=== PATIENT | female | born 1985 | race Caucasian/White ===

== ENCOUNTER → 2017-03-23 | Outpatient (CLI) | payer OTHER ==
[~2017-03-23] MED LIST: ARIP10 PO; ARIP15 PO; ARIP20 PO; ARIP30 PO; BENZ2 PO; LEVSOD125; LEVSOD50 PO; LITH300C PO; PENVK500 PO; Synthroid50 MCG PO
== END | disposition home or self-care (01) ==
LOC: PLD 13:16 → LAB SHORT 13:16
DX: D06.0 Carcinoma in situ of endocervix (principal)
CPT/HCPCS: 88307; 88342

== ENCOUNTER 2017-04-03 20:54 | Emergency (ER) | payer OTHER ==
[~2017-04-03] VITALS: Ht 165.1 cm; Wt 118.8 kg
[~2017-04-03 20:54] MED LIST changes: -PENVK500 PO
[2017-04-03] MEDS ORDERED: PENVK500 PO (21:53)
== END 2017-04-03 21:58 | disposition home or self-care (01) ==
LOC: ER 20:54
DX: K02.9 Dental caries, unspecified (principal); F31.9 Bipolar disorder, unspecified; Z79.899 Other long term (current) drug therapy
CPT/HCPCS: 64400; 99283

== ENCOUNTER 2018-02-25 10:12 | Emergency (ER) | payer OTHER ==
[~2018-02-25] VITALS: Ht 167.6 cm; Wt 96.6 kg
[~2018-02-25 10:12] MED LIST changes: +PENVK500 PO
[2018-02-25] MEDS ORDERED: LORA1 PO (10:23)
[2018-02-25] MEDS ORDERED: OLAN5 PO ×2 (10:23→11:54)
[2018-02-25 11:00] LABS: Source, Urine Clean Catch
[2018-02-25 11:07] LABS: Bilirubin, Urine Neg (Neg); Blood, Urine 1+ (Neg); Glucose Qualitative, Urine Neg (Neg); Ketones, Urine Neg (Neg); Leukocyte Esterase, Urine 3+ (Neg); Nitrite, Urine Neg (Neg); Protein, Urine Neg (Neg); Urobilinogen, Urine NORM (Normal)
[2018-02-25 11:28] LABS: Appearance, Urine Hazy (Clear); Color, Urine Pale Yellow (P-Yellow)
[2018-02-25 11:29] LABS: BASOPHILS ABSOLUTE AUTO 0.05 K/mm3 (0.00-0.23); BASOPHILS PERCENT AUTO 1 % (0-2); EOSINOPHILS ABSOLUTE AUTO 0.77 K/mm3 (0.00-0.68); EOSINOPHILS PERCENT AUTO 9 % (0-6); Hematocrit 39.1 % (33.0-51.0); Hemoglobin 12.8 g/dL (11.5-16.0); IMMATURE GRAN ABSOLUTE AUTO 0.03 K/mm3 (0.00-0.10); IMMATURE GRAN PERCENT AUTO 0 % (0-1); LYMPHOCYTES ABSOLUTE AUTO 2.13 K/mm3 (0.84-5.20); LYMPHOCYTES PERCENT AUTO 24 % (21-46); MONOCYTES ABSOLUTE AUTO 0.47 K/mm3 (0.16-1.47); MONOCYTES PERCENT AUTO 5 % (4-13); Mean Corpuscular HGB 30.8 pg (26.0-34.0); Mean Corpuscular HGB Conc 32.7 g/dL (31.5-36.5); Mean Corpuscular Volume 94 fL (80-100); Mean Platelet Volume 10.1 fL (9.1-12.4); NEUTROPHILS ABSOLUTE AUTO 5.37 K/mm3 (1.96-9.15); NEUTROPHILS PERCENT AUTO 61 % (41-73); Platelet Count 375 K/mm3 (150-400); RDW Coefficient Variation 13.6 % (11.7-14.2); RDW Standard Deviation 47.2 fL (35.1-46.3); Red Blood Cell Count 4.16 M/mm3 (3.80-5.20); White Blood Cell Count 8.82 K/mm3 (4.00-11.30)
[2018-02-25 11:29] LABS: Bacteria Many /hpf; Red Blood Cells, Urine 0-2 /hpf (0-2); Squamous Epithelial Cells Many /hpf (Few); Transitional Epithelial Cells Few /hpf (0-Rare); White Blood Cells, Urine TNTC /hpf (0-5)
[2018-02-25 11:34] LABS: Alanine Aminotransfer (ALT/SGP 33 U/L (12-78); Albumin, Blood 2.8 g/dL (3.4-5.0); Albumin/Globulin Ratio 0.7 (0.8-1.8); Alk Phos 80 U/L (50-136); Anion Gap 6 mmol/L (6-16); Aspartate Aminotrans (AST/SGOT 20 U/L (12-37); Bilirubin, Total 0.2 mg/dL (0.1-1.0); Blood Urea Nitrogen 10 mg/dL (8-24); Bun/Creatinine Ratio 19.3 (12.0-20.0); CO2, Blood 27 mmol/L (21-32); Calcium, Blood 8.1 mg/dL (8.5-10.1); Chloride, Blood 105 mmol/L (98-108); Creatinine, Blood 0.52 mg/dL (0.40-1.00); Globulin, Blood 4.1 g/dL (2.2-4.0); Glomerular Filtration Rate >60 (60-); Glucose, Blood 104 mg/dL (70-99); Sodium, Blood 138 mmol/L (136-145); Total Protein, Blood 6.9 g/dL (6.4-8.2)
[2018-02-25] MEDS ORDERED: Ativan1 MG PO (11:54)
[2018-02-25] MEDS ORDERED: Zofran4 MG PO (11:54)
[2018-02-25] MEDS ORDERED: Pepcid40 MG PO (11:54)
== END 2018-02-25 13:02 | disposition home or self-care (01) ==
LOC: ER 10:12
PROVIDERS: Physician Assistant
DX: R10.11 Right upper quadrant pain (principal); Z79.899 Other long term (current) drug therapy; F31.9 Bipolar disorder, unspecified; F41.9 Anxiety disorder, unspecified; F17.210 Nicotine dependence, cigarettes, uncomplicated
CPT/HCPCS: 36415; 80053; 81001; 81025; 83690; 85025; 96361; 96374; 96375; 99283-25; J2405; J7120

== ENCOUNTER → 2018-03-12 | Outpatient (CLI) | payer OTHER ==
[~2018-03-12] MED LIST changes: +Ativan1 MG PO; +LORA1 PO; +OLAN5 PO; +Pepcid40 MG PO; +Zofran4 MG PO
[2018-03-14 07:14] LABS: HIV SCREEN 4TH GENERATION WRFX Non Reactive (Non Reactive)
[2018-03-15 12:09] LABS: CHLAMYDIA BY NAA Negative (Negative); GONOCOCCUS BY NAA Negative (Negative); TRICH VAG BY NAA Positive (Negative)
== END | disposition home or self-care (01) ==
LOC: LAB SHORT 15:53 → LAB EV 15:53
PROVIDERS: Physician Assistant Surgical
DX: Z11.3 Encounter for screening for infections with a predominantly sexual mode of transmission (principal); Z72.51 High risk heterosexual behavior
CPT/HCPCS: 86592; 87070; 87077; 87147; 87186; 87205; 87389; 87491; 87591; 87661

== ENCOUNTER → 2018-03-24 | Outpatient (CLI) | payer OTHER | END | disposition home or self-care (01) | LOC: LAB SHORT 09:57 → LAB EV 09:57 | DX: J02.9 Acute pharyngitis, unspecified (principal) | CPT/HCPCS: 87070 ==

== ENCOUNTER 2018-10-09 18:18 | Emergency (ER) | payer OTHER ==
[~2018-10-09] VITALS: Ht 165.1 cm; Wt 90.7 kg
[2018-10-09 19:20] LABS: Calcium, Ionized (POC) 1.04 mmol/L (1.10-1.46); Chloride (POC) 104 mmol/L (98-108); Glucose (ISTAT POC) 90 mg/dL (70-99); Potassium (POC) 3.5 mmol/L (3.5-5.5); Sodium (POC) 137 mmol/L (135-148); Total CO2 (POC) 19 mmol/L (21-32)
== END 2018-10-09 20:45 | disposition home or self-care (01) ==
LOC: ER 18:18
DX: F41.9 Anxiety disorder, unspecified (principal); F43.9 Reaction to severe stress, unspecified; F15.20 Other stimulant dependence, uncomplicated; E86.0 Dehydration; Z79.899 Other long term (current) drug therapy; F31.9 Bipolar disorder, unspecified; G43.909 Migraine, unspecified, not intractable, without status migrainosus; F17.210 Nicotine dependence, cigarettes, uncomplicated
CPT/HCPCS: 36415; 80047; 85014; 96361; 96374; 96375; 99284-25; J1885; J2405; J7030

== ENCOUNTER → 2018-10-20 | Outpatient (CLI) | payer OTHER ==
[2018-10-20 11:36] LABS: BASOPHILS ABSOLUTE AUTO 0.04 K/mm3 (0.00-0.23); BASOPHILS PERCENT AUTO 1 % (0-2); EOSINOPHILS ABSOLUTE AUTO 0.18 K/mm3 (0.00-0.68); EOSINOPHILS PERCENT AUTO 2 % (0-6); Hematocrit 44.3 % (33.0-51.0); Hemoglobin 15.3 g/dL (11.5-16.0); IMMATURE GRAN ABSOLUTE AUTO 0.01 K/mm3 (0.00-0.10); IMMATURE GRAN PERCENT AUTO 0 % (0-1); LYMPHOCYTES ABSOLUTE AUTO 2.29 K/mm3 (0.84-5.20); LYMPHOCYTES PERCENT AUTO 26 % (21-46); MONOCYTES ABSOLUTE AUTO 0.41 K/mm3 (0.16-1.47); MONOCYTES PERCENT AUTO 5 % (4-13); Mean Corpuscular HGB 32.2 pg (26.0-34.0); Mean Corpuscular HGB Conc 34.5 g/dL (31.5-36.5); Mean Corpuscular Volume 93 fL (80-100); Mean Platelet Volume 9.9 fL (9.1-12.4); NEUTROPHILS ABSOLUTE AUTO 5.78 K/mm3 (1.96-9.15); NEUTROPHILS PERCENT AUTO 66 % (41-73); Platelet Count 344 K/mm3 (150-400); RDW Coefficient Variation 12.5 % (11.7-14.2); RDW Standard Deviation 42.9 fL (35.1-46.3); Red Blood Cell Count 4.75 M/mm3 (3.80-5.20); White Blood Cell Count 8.71 K/mm3 (4.00-11.30)
[2018-10-20 11:59] LABS: Anion Gap 10 mmol/L (6-16); Blood Urea Nitrogen 9 mg/dL (8-24); Bun/Creatinine Ratio 12.7 (12.0-20.0); CO2, Blood 26 mmol/L (21-32); Calcium, Blood 8.6 mg/dL (8.5-10.1); Chloride, Blood 104 mmol/L (98-108); Creatinine, Blood 0.71 mg/dL (0.40-1.00); Glomerular Filtration Rate >60 (60-); Glucose, Blood 93 mg/dL (70-99); Potassium, Blood 4.4 mmol/L (3.5-5.5); Sodium, Blood 140 mmol/L (136-145)
== END | disposition home or self-care (01) ==
LOC: LAB SHORT 11:31 → LAB EV 11:31
PROVIDERS: Physician Assistant
DX: N91.1 Secondary amenorrhea (principal)
CPT/HCPCS: 80048; 84443; 84702; 85025

== ENCOUNTER 2018-11-30 13:10 | Emergency (ER) | payer OTHER ==
[~2018-11-30] VITALS: Ht 165.1 cm; Wt 84.8 kg
[2018-11-30 15:25] LABS: BASOPHILS ABSOLUTE AUTO 0.05 K/mm3 (0.00-0.23); BASOPHILS PERCENT AUTO 0 % (0-2); EOSINOPHILS ABSOLUTE AUTO 0.19 K/mm3 (0.00-0.68); EOSINOPHILS PERCENT AUTO 1 % (0-6); Hematocrit 41.2 % (33.0-51.0); Hemoglobin 13.8 g/dL (11.5-16.0); IMMATURE GRAN ABSOLUTE AUTO 0.04 K/mm3 (0.00-0.10); IMMATURE GRAN PERCENT AUTO 0 % (0-1); LYMPHOCYTES ABSOLUTE AUTO 2.15 K/mm3 (0.84-5.20); LYMPHOCYTES PERCENT AUTO 15 % (21-46); MONOCYTES ABSOLUTE AUTO 0.71 K/mm3 (0.16-1.47); MONOCYTES PERCENT AUTO 5 % (4-13); Mean Corpuscular HGB 31.6 pg (26.0-34.0); Mean Corpuscular HGB Conc 33.5 g/dL (31.5-36.5); Mean Corpuscular Volume 94 fL (80-100); Mean Platelet Volume 9.7 fL (9.1-12.4); NEUTROPHILS ABSOLUTE AUTO 11.36 K/mm3 (1.96-9.15); NEUTROPHILS PERCENT AUTO 78 % (41-73); Platelet Count 302 K/mm3 (150-400); RDW Coefficient Variation 13.1 % (11.7-14.2); RDW Standard Deviation 45.5 fL (35.1-46.3); Red Blood Cell Count 4.37 M/mm3 (3.80-5.20)
[2018-11-30 15:50] LABS: Alanine Aminotransfer (ALT/SGP 18 U/L (12-78); Albumin, Blood 3.6 g/dL (3.4-5.0); Alk Phos 63 U/L (50-136); Anion Gap 7 mmol/L (6-16); Aspartate Aminotrans (AST/SGOT 13 U/L (12-37); Bilirubin, Total 0.6 mg/dL (0.1-1.0); Blood Urea Nitrogen 8 mg/dL (8-24); Bun/Creatinine Ratio 11.5 (12.0-20.0); CO2, Blood 26 mmol/L (21-32); Calcium, Blood 8.6 mg/dL (8.5-10.1); Chloride, Blood 102 mmol/L (98-108); Creatinine, Blood 0.69 mg/dL (0.40-1.00); Globulin, Blood 3.7 g/dL (2.2-4.0); Glomerular Filtration Rate >60 (60-); Glucose, Blood 88 mg/dL (70-99); Potassium, Blood 3.7 mmol/L (3.5-5.5); Sodium, Blood 135 mmol/L (136-145); Total Protein, Blood 7.3 g/dL (6.4-8.2)
[2018-11-30 15:51] LABS: Source, Urine Clean Catch
[2018-11-30 15:54] LABS: Appearance, Urine Hazy (Clear); Bilirubin, Urine Neg (Neg); Blood, Urine 1+ (Neg); Color, Urine Yellow (P-Yellow); Glucose Qualitative, Urine Neg (Neg); Ketones, Urine Neg (Neg); Leukocyte Esterase, Urine 3+ (Neg); Nitrite, Urine Neg (Neg); Protein, Urine Neg (Neg); Urobilinogen, Urine NORM (Normal)
[2018-11-30 16:10] LABS: Bacteria Many /hpf; Squamous Epithelial Cells Many /hpf (Few); White Blood Cells, Urine 25-50 /hpf (0-5)
[2018-11-30 16:11] LABS: Hyaline Casts 0-2 /lpf (0-2)
== END 2018-11-30 16:49 | disposition home or self-care (01) ==
LOC: ER 13:10
PROVIDERS: Physician Assistant
DX: S10.93XA Contusion of unspecified part of neck, initial encounter (principal); S60.811A Abrasion of right wrist, initial encounter; F31.9 Bipolar disorder, unspecified; F17.210 Nicotine dependence, cigarettes, uncomplicated; Z79.899 Other long term (current) drug therapy; V49.40XA Driver injured in collision with unspecified motor vehicles in traffic accident, initial encounter
CPT/HCPCS: 36415; 70498; 71046; 73090; 80053; 81001; 81025; 85025; 87086; 90471; 90714; 99284-25; Q9967

== ENCOUNTER 2019-01-04 11:59 | Emergency (ER) | payer OTHER ==
[~2019-01-04] VITALS: Ht 167.6 cm; Wt 83.9 kg
[2019-01-04] MEDS ORDERED: ARIPIPRAZOLE15 MG PO (12:23)
[2019-01-04] MEDS ORDERED: ARIP10 PO (12:40)
== END 2019-01-04 12:44 | disposition home or self-care (01) ==
LOC: ER 11:59
DX: Z76.0 Encounter for issue of repeat prescription (principal); F31.9 Bipolar disorder, unspecified; F17.210 Nicotine dependence, cigarettes, uncomplicated; Z79.899 Other long term (current) drug therapy
CPT/HCPCS: 99281

== ENCOUNTER 2019-02-08 12:24 | Emergency (ER) | payer OTHER ==
[~2019-02-08 12:24] MED LIST changes: +ARIPIPRAZOLE15 MG PO
== END 2019-02-08 13:36 | disposition left against medical advice (07) ==
LOC: ER 12:24
DX: Z53.21 Procedure and treatment not carried out due to patient leaving prior to being seen by health care provider (principal)
CPT/HCPCS: J1630; J7030

== ENCOUNTER 2019-02-09 19:17 | Observation (INO) | payer OTHER ==
[~2019-02-09] VITALS: Ht 162.6 cm; Wt 94.9 kg
[2019-02-09 19:53] LABS: BASOPHILS ABSOLUTE AUTO 0.04 K/mm3 (0.00-0.23); BASOPHILS PERCENT AUTO 0 % (0-2); EOSINOPHILS ABSOLUTE AUTO 0.05 K/mm3 (0.00-0.68); EOSINOPHILS PERCENT AUTO 1 % (0-6); Hematocrit 42.8 % (33.0-51.0); Hemoglobin 13.7 g/dL (11.5-16.0); IMMATURE GRAN ABSOLUTE AUTO 0.03 K/mm3 (0.00-0.10); IMMATURE GRAN PERCENT AUTO 0 % (0-1); LYMPHOCYTES ABSOLUTE AUTO 2.05 K/mm3 (0.84-5.20); LYMPHOCYTES PERCENT AUTO 22 % (21-46); MONOCYTES ABSOLUTE AUTO 0.48 K/mm3 (0.16-1.47); MONOCYTES PERCENT AUTO 5 % (4-13); Mean Corpuscular HGB 31.9 pg (26.0-34.0); Mean Corpuscular Volume 100 fL (80-100); NEUTROPHILS ABSOLUTE AUTO 6.81 K/mm3 (1.96-9.15); NEUTROPHILS PERCENT AUTO 72 % (41-73); Platelet Count 334 K/mm3 (150-400); RDW Coefficient Variation 13.1 % (11.7-14.2); RDW Standard Deviation 47.9 fL (35.1-46.3); White Blood Cell Count 9.46 K/mm3 (4.00-11.30)
[2019-02-09 20:09] LABS: Source, Urine Catheter
[2019-02-09 20:18] LABS: Bilirubin, Urine Neg (Neg); Blood, Urine Neg (Neg); Glucose Qualitative, Urine Neg (Neg); Ketones, Urine Neg (Neg); Leukocyte Esterase, Urine Neg (Neg); Nitrite, Urine Neg (Neg); Protein, Urine 1+ (Neg); Urobilinogen, Urine NORM (Normal)
[2019-02-09 20:19] LABS: Alanine Aminotransfer (ALT/SGP 102 U/L (12-78); Albumin, Blood 3.2 g/dL (3.4-5.0); Albumin/Globulin Ratio 0.9 (0.8-1.8); Alk Phos 64 U/L (50-136); Anion Gap 5 mmol/L (6-16); Aspartate Aminotrans (AST/SGOT 81 U/L (12-37); Bilirubin, Total 0.6 mg/dL (0.1-1.0); Blood Urea Nitrogen 14 mg/dL (8-24); Bun/Creatinine Ratio 19.4 (12.0-20.0); CO2, Blood 26 mmol/L (21-32); Calcium, Blood 8.4 mg/dL (8.5-10.1); Chloride, Blood 108 mmol/L (98-108); Creatinine, Blood 0.72 mg/dL (0.40-1.00); Ethanol (Alcohol), Blood, Med <3 mg/dL; Globulin, Blood 3.7 g/dL (2.2-4.0); Glomerular Filtration Rate >60 (60-); Glucose, Blood 93 mg/dL (70-99); Potassium, Blood 5.1 mmol/L (3.5-5.5); Salicylate <1.7 mg/dL (2.8-20.0); Sodium, Blood 139 mmol/L (136-145); Total Protein, Blood 6.9 g/dL (6.4-8.2)
[2019-02-09 20:22] LABS: Acetaminophen, Random <2.0 ug/mL (10.0-30.0)
[2019-02-09 20:26] LABS: Appearance, Urine Clear (Clear); Color, Urine Yellow (P-Yellow)
[2019-02-09 20:28] LABS: U Amphetamine Screen DETECTED; U Barbituate Screen Not Detected; U Benzodiazapine Screen Not Detected; U Buprenorphine Screen Not Detected; U Cannabinoids Screen DETECTED; U Cocaine Screen Not Detected; U Methadone Screen Not Detected; U Methamphetamine Screen DETECTED; U Opiates Screen Not Detected; U Oxycodone Screen Not Detected; U Phencyclidine Screen Not Detected; U Propoxyphene Screen Not Detected
--- NOTE | 2019-02-10 07:00 | NUR ---
AM ASSESSMENT: REC'D BEDSIDE ASSESSMENT. PT REMAINS SOMNOLENT AT THIS TIME. WILL SLIGHTLY AWAKEN TO VERBAL STIMULI. CALL LIGHT WITHIN REACH.
--- NOTE | 2019-02-10 07:13 | NUR ---
SHFIT SUMMARY PATIENT SLEPT WELL THROUGH REST OF SHIFT. MULTIPLE LAB PERSONEL, RNs, AND RT WERE UNSUCCESFUL WITH DRAWING LABS, INFORMED DAYSHIFT. VSS. NO C/O PAIN. FLU SHOT GIVEN. IT HAS BEEN A PLEASURE TAKING CARE OF THIS PATIENT.
--- NOTE | 2019-02-10 07:40 | NUR ---
FAMILY VISIT: PT'S MOM AND SISTER HERE TO VISIT. PT AWAKENED SCARED AND STARTED CALLING OUT. ANTONIO HYDE RE-ORIENTED PT AND PT BECAME CALM.
--- NOTE | 2019-02-10 09:27 | NUR ---
PT REMAINS VERY DROWSY AT THIS TIME.
--- NOTE | 2019-02-10 11:30 | NUR ---
PT UPDATE: PT OOB TO SHOWER. PT IS VERY WEAK, TREMULOUS, AND UNSTEADY ON FEET. 1-2 PERSON ASSIST FOR SAFETY. PT FULLY ASSISTED WITH SHOWER, PT IS UNABLE TO DO ADL'S INDEPENDENTLY AT THIS TIME. PT REMAINS VERY SLEEPY AND FALLS ASLEEP EASILY. MOOD IS LABILE. PT QUICKLY GOES FROM BEING TEARFUL, TO ANGRY, AND THEN BACK TO SLEEP. PT REMAINS CONFUSED BUT ABLE TO SAY IT'S January,, AND SHE IS IN THE HOSPITAL IN [place].
[2019-02-10 16:10] LABS: Hematocrit 38.4 % (33.0-51.0); Mean Corpuscular HGB 31.7 pg (26.0-34.0); Mean Corpuscular HGB Conc 31.3 g/dL (31.5-36.5); Mean Corpuscular Volume 101 fL (80-100); Platelet Count 243 K/mm3 (150-400); RDW Coefficient Variation 13.2 % (11.7-14.2); RDW Standard Deviation 49.6 fL (35.1-46.3); Red Blood Cell Count 3.79 M/mm3 (3.80-5.20); White Blood Cell Count 7.58 K/mm3 (4.00-11.30)
[2019-02-10 16:29] LABS: CPK Creatine Kinase 108 U/L (26-193)
[2019-02-10 16:34] LABS: Alanine Aminotransfer (ALT/SGP 301 U/L (12-78); Albumin, Blood 2.6 g/dL (3.4-5.0); Albumin/Globulin Ratio 0.9 (0.8-1.8); Alk Phos 48 U/L (50-136); Anion Gap 6 mmol/L (6-16); Aspartate Aminotrans (AST/SGOT 151 U/L (12-37); Bilirubin, Total 0.4 mg/dL (0.1-1.0); Blood Urea Nitrogen 13 mg/dL (8-24); Bun/Creatinine Ratio 19.1 (12.0-20.0); CO2, Blood 22 mmol/L (21-32); Calcium, Blood 7.5 mg/dL (8.5-10.1); Chloride, Blood 115 mmol/L (98-108); Creatinine, Blood 0.68 mg/dL (0.40-1.00); Glomerular Filtration Rate >60 (60-); Glucose, Blood 71 mg/dL (70-99); Potassium, Blood 3.9 mmol/L (3.5-5.5); Sodium, Blood 143 mmol/L (136-145); Total Protein, Blood 5.6 g/dL (6.4-8.2)
--- NOTE | 2019-02-10 16:47 | NUR ---
REPORTED OFF ON THIS PT TO [facility]'ING MEDICAL FLOOR NURSE.
--- NOTE | 2019-02-10 16:51 | NUR ---
PT TRANSFERRED: PT TRANSFERRED VIA BED PER LUIGI WEBBER TO RM [id number]. CHART AND ALL PERSONAL BELONGINGS SENT WITH PT.
--- NOTE | 2019-02-10 17:52 | NUR ---
SHIFT SUMMARY ADMIT FROM ICU THIS P.M. LABILE. SBA TO BSC/BATHROOM. AWAKE AND OX2 PERSON, PLACE. +METH. NON COMPLIANT WITH LITHIUM DOSING. EATING AND DRINKING WELL. LIMIT VISITORS TO MOTHER AND MOTHER'S PER PATIENT.
--- NOTE | 2019-02-11 03:44 | NUR ---
SHIFT SUMMARY PATIENT'S LS CLEAR T/O AND BT+. SHE HAS SCHEDULED HALDOL QID BUT HAS ONLY GOTTEN 2 DOSES OF IT. IT APPEARS TO BE MAKING HER SLEEP. SHE WAS AWAKE FOR AWHILE AND STATED SHE WAS HUNGRY AND NEEDED TO USE THE RESTROOM FOR BOWEL AND BLADDER. SHE ATE PUDDING X2, JELLO, PEPSI BUT DIDN'T EAT THE SANDWICH TAKEN TO HER. SHE ALSO ASKED FOR AN EXTRA BLANKET AND STATED HER STOMACH WAS UPSET, THEN APPEARED TO BE SLEEPING AND HASN'T HAD ANY C/O ANYTHING SINCE THEN.
--- NOTE | 2019-02-11 12:10 | NUR ---
PT DISCHARGED POV WITH MOTHER AND IN NO ACUTE DISTRESS. MOTHER REPORTS PT HAS CURRENTLY SCHEDULED APPT TO OBTAIN A PCP IN THE NEXT FEW WEEKS. PT AND FAMILY ENCOURAGED TO CALL CLINIC AND RESCHEDULE FOR NEXT AVAILABLE APPT. IV'S DISCONTINUED INTACT. PT AND VERBALIZED UNDERSTANDING OF DISCHARGE INSTRUCTIONS. NO RX PRESCRIBED AT TIME OF DISCHARGE.
== END 2019-02-11 12:10 | disposition home or self-care (01) ==
LOC: ER 19:17 → EOR 19:18 → ICUW 19:18 → ER 19:18 → EOR 19:18 → ICUW 02-10 02:14 → MEDS 02-10 16:51 → ENPENDDIS 02-11 10:30 → MEDS 02-11 12:10
PROVIDERS: Emergency Medicine; ADMIT Internal Medicine
DX: T43.621A Poisoning by amphetamines, accidental (unintentional), initial encounter (principal); G92 Toxic encephalopathy; F15.129 Other stimulant abuse with intoxication, unspecified; F31.9 Bipolar disorder, unspecified; G43.909 Migraine, unspecified, not intractable, without status migrainosus; R94.5 Abnormal results of liver function studies; E86.0 Dehydration; F17.210 Nicotine dependence, cigarettes, uncomplicated; Z79.899 Other long term (current) drug therapy; Z23 Encounter for immunization
CPT/HCPCS: 36415; 70450; 80053; 81025; 82550; 85025; 85027; 90686; 93005; 93010; 96361; 96372; 96374; 96375; 96376; 99285-25; G0008; G0378; G0480; J1630; J1650; J2060; J7030; P9612

== ENCOUNTER 2019-02-23 10:14 | Emergency (ER) | payer OTHER ==
[~2019-02-23] VITALS: Ht 167.6 cm; Wt 95.2 kg
== END 2019-02-23 10:58 | disposition left against medical advice (07) ==
LOC: ER 10:14
DX: Z53.21 Procedure and treatment not carried out due to patient leaving prior to being seen by health care provider (principal)
CPT/HCPCS: 99282

== ENCOUNTER 2019-02-23 12:13 | Emergency (ER) | payer OTHER ==
[~2019-02-23] VITALS: Ht 165.1 cm; Wt 95.2 kg
== END 2019-02-23 12:47 | disposition left against medical advice (07) ==
LOC: ER 12:13
DX: Z53.21 Procedure and treatment not carried out due to patient leaving prior to being seen by health care provider (principal)

== ENCOUNTER 2019-03-02 02:57 | Emergency (ER) | payer OTHER ==
[~2019-03-02] VITALS: Ht 165.1 cm; Wt 95.2 kg
== END 2019-03-02 03:19 | disposition home or self-care (01) ==
LOC: ER 02:57
DX: F15.10 Other stimulant abuse, uncomplicated (principal); T43.625A Adverse effect of amphetamines, initial encounter; F17.210 Nicotine dependence, cigarettes, uncomplicated
CPT/HCPCS: 96372; 99283-25; J1200

== ENCOUNTER 2019-04-30 08:04 | Emergency (ER) | payer OTHER ==
[~2019-04-30] VITALS: Ht 165.1 cm; Wt 93.0 kg
[2019-04-30] MEDS ORDERED: LITH300ER PO (08:29)
[2019-04-30] MEDS ORDERED: Abilify2 MG PO (08:30)
[2019-04-30 09:51] LABS: BASOPHILS ABSOLUTE AUTO 0.06 K/mm3 (0.00-0.23); BASOPHILS PERCENT AUTO 0 % (0-2); EOSINOPHILS ABSOLUTE AUTO 0.21 K/mm3 (0.00-0.68); EOSINOPHILS PERCENT AUTO 1 % (0-6); Hematocrit 36.8 % (33.0-51.0); Hemoglobin 12.1 g/dL (11.5-16.0); IMMATURE GRAN ABSOLUTE AUTO 0.07 K/mm3 (0.00-0.10); IMMATURE GRAN PERCENT AUTO 0 % (0-1); LYMPHOCYTES ABSOLUTE AUTO 1.73 K/mm3 (0.84-5.20); LYMPHOCYTES PERCENT AUTO 10 % (21-46); MONOCYTES ABSOLUTE AUTO 0.74 K/mm3 (0.16-1.47); MONOCYTES PERCENT AUTO 4 % (4-13); Mean Corpuscular HGB 31.4 pg (26.0-34.0); Mean Corpuscular HGB Conc 32.9 g/dL (31.5-36.5); Mean Corpuscular Volume 96 fL (80-100); Mean Platelet Volume 9.7 fL (9.1-12.4); NEUTROPHILS ABSOLUTE AUTO 14.72 K/mm3 (1.96-9.15); NEUTROPHILS PERCENT AUTO 84 % (41-73); Platelet Count 328 K/mm3 (150-400); RDW Coefficient Variation 14.4 % (11.7-14.2); RDW Standard Deviation 50.4 fL (35.1-46.3); Red Blood Cell Count 3.85 M/mm3 (3.80-5.20); White Blood Cell Count 17.53 K/mm3 (4.00-11.30)
[2019-04-30 10:09] LABS: Anion Gap 3 mmol/L (6-16); Blood Urea Nitrogen 5 mg/dL (8-24); Bun/Creatinine Ratio 9.1 (12.0-20.0); CO2, Blood 25 mmol/L (21-32); Calcium, Blood 7.8 mg/dL (8.5-10.1); Chloride, Blood 111 mmol/L (98-108); Creatinine, Blood 0.55 mg/dL (0.40-1.00); Glomerular Filtration Rate >60 (60-); Glucose, Blood 98 mg/dL (70-99); Potassium, Blood 4.1 mmol/L (3.5-5.5); Sodium, Blood 139 mmol/L (136-145)
[2019-04-30] MEDS ORDERED: ONDA4ODT MM (10:50)
[2019-04-30] MEDS ORDERED: BENZ100A PO (10:50)
== END 2019-04-30 11:09 | disposition home or self-care (01) ==
LOC: ER 08:04
PROVIDERS: Physician Assistant
DX: J06.9 Acute upper respiratory infection, unspecified (principal); R11.2 Nausea with vomiting, unspecified; F31.9 Bipolar disorder, unspecified; J45.909 Unspecified asthma, uncomplicated; F17.210 Nicotine dependence, cigarettes, uncomplicated; Z79.899 Other long term (current) drug therapy
CPT/HCPCS: 36415; 71046; 80048; 85025; 96361; 96374; 99284-25; J2405; J7030

== ENCOUNTER → 2019-08-13 | Outpatient (CLI) | payer OTHER ==
[~2019-08-13] MED LIST changes: +Abilify2 MG PO; +BENZ100A PO; +LITH300ER PO; +ONDA4ODT MM
== END | disposition home or self-care (01) ==
LOC: LAB 12:50 → LAB SHORT 12:50
DX: R10.84 Generalized abdominal pain (principal)
CPT/HCPCS: 87086

== ENCOUNTER 2019-12-23 22:14 | Emergency (ER) | payer OTHER ==
[~2019-12-23] VITALS: Ht 165.1 cm; Wt 93.0 kg
[2019-12-23] MEDS ORDERED: BACITO TOP (22:55)
[2019-12-23] MEDS ORDERED: Monodox100 MG PO (22:55)
== END 2019-12-23 23:23 | disposition home or self-care (01) ==
LOC: ER 22:14
DX: L03.115 Cellulitis of right lower limb (principal); F31.9 Bipolar disorder, unspecified; F17.210 Nicotine dependence, cigarettes, uncomplicated; Z79.899 Other long term (current) drug therapy
CPT/HCPCS: 99282

== ENCOUNTER 2020-08-13 14:26 | Emergency (ER) | payer OTHER ==
[~2020-08-13] VITALS: Ht 165.1 cm; Wt 108.9 kg
[~2020-08-13 14:26] MED LIST changes: +BACITO TOP; +Monodox100 MG PO
== END 2020-08-13 17:23 | disposition left against medical advice (07) ==
LOC: ER 14:26
DX: Z53.21 Procedure and treatment not carried out due to patient leaving prior to being seen by health care provider (principal)

== ENCOUNTER 2020-08-16 18:48 | Emergency (ER) | payer OTHER ==
[~2020-08-16] VITALS: Ht 165.1 cm; Wt 113.4 kg
[2020-08-16] MEDS ORDERED: AMOCLA875 PO (19:56)
== END 2020-08-16 20:19 | disposition home or self-care (01) ==
LOC: ER 18:48
DX: K02.9 Dental caries, unspecified (principal); F17.210 Nicotine dependence, cigarettes, uncomplicated; Z79.899 Other long term (current) drug therapy
CPT/HCPCS: 96372; 99282-25; A9270; J1885

== ENCOUNTER 2021-06-16 00:43 | Emergency (ER) | payer OTHER ==
[~2021-06-16] VITALS: Ht 165.1 cm; Wt 108.9 kg
[~2021-06-16 00:43] MED LIST changes: +ABILIFY MYCITE2 M2 PO; +AMOCLA875 PO; +HYDHCL25 PO
[2021-06-16] MEDS ORDERED: Cleocin HCl150 MG PO (03:21)
== END 2021-06-16 03:59 | disposition home or self-care (01) ==
LOC: ER 00:43
DX: L02.412 Cutaneous abscess of left axilla (principal); L73.2 Hidradenitis suppurativa; G43.909 Migraine, unspecified, not intractable, without status migrainosus; F17.210 Nicotine dependence, cigarettes, uncomplicated; Z79.899 Other long term (current) drug therapy
CPT/HCPCS: 10060; 96372; 99283-25; A9270; J1885

== ENCOUNTER 2021-07-07 21:59 | Emergency (ER) | payer OTHER ==
[~2021-07-07] VITALS: Ht 165.1 cm; Wt 108.9 kg
[~2021-07-07 21:59] MED LIST changes: +Cleocin HCl150 MG PO
== END 2021-07-07 22:48 | disposition home or self-care (01) ==
LOC: ER 21:59
DX: L76.82 Other postprocedural complications of skin and subcutaneous tissue (principal); F17.210 Nicotine dependence, cigarettes, uncomplicated; Z88.1 Allergy status to other antibiotic agents; Z79.899 Other long term (current) drug therapy
CPT/HCPCS: 99282

== ENCOUNTER 2021-10-18 18:04 | Emergency (ER) | payer OTHER ==
[~2021-10-18] VITALS: Ht 165.1 cm; Wt 102.1 kg
== END 2021-10-18 19:45 | disposition left against medical advice (07) ==
LOC: ER 18:04
DX: Z03.6 Encounter for observation for suspected toxic effect from ingested substance ruled out (principal); M79.10 Myalgia, unspecified site; F15.90 Other stimulant use, unspecified, uncomplicated; F17.210 Nicotine dependence, cigarettes, uncomplicated; Z88.1 Allergy status to other antibiotic agents; Z53.21 Procedure and treatment not carried out due to patient leaving prior to being seen by health care provider
CPT/HCPCS: 99283

== ENCOUNTER 2021-10-27 12:06 | Emergency (ER) | payer OTHER ==
[~2021-10-27] VITALS: Ht 165.1 cm; Wt 90.7 kg
== END 2021-10-27 13:35 | disposition left against medical advice (07) ==
LOC: ER 12:06
DX: F15.10 Other stimulant abuse, uncomplicated (principal); I10 Essential (primary) hypertension; F31.9 Bipolar disorder, unspecified; S61.512A Laceration without foreign body of left wrist, initial encounter; X78.9XXA Intentional self-harm by unspecified sharp object, initial encounter; F17.210 Nicotine dependence, cigarettes, uncomplicated; Z53.21 Procedure and treatment not carried out due to patient leaving prior to being seen by health care provider; Z88.1 Allergy status to other antibiotic agents; Z79.899 Other long term (current) drug therapy
CPT/HCPCS: 99284

== ENCOUNTER 2021-11-05 06:57 | Observation (INO) | payer OTHER ==
[~2021-11-05] VITALS: Ht 165.1 cm; Wt 104.3 kg
== END 2021-11-06 03:25 | disposition home or self-care (01) ==
LOC: ER 06:57 → EOR 06:58
PROVIDERS: ADMIT Emergency Medicine
DX: F15.10 Other stimulant abuse, uncomplicated (principal); R45.1 Restlessness and agitation; G43.709 Chronic migraine without aura, not intractable, without status migrainosus; F31.9 Bipolar disorder, unspecified; F17.210 Nicotine dependence, cigarettes, uncomplicated
CPT/HCPCS: 96372; 99285-25; A9270; G0378; J1200; J1790; J2060

== ENCOUNTER 2023-09-04 02:56 | Emergency (ER) | payer OTHER ==
[~2023-09-04] VITALS: Ht 165.1 cm; Wt 113.4 kg
[2023-09-04] MEDS ORDERED: LORazepam 1 MG Tab PO ONE (06:05)
[2023-09-04 06:11] VITALS: BP 101/84
== END 2023-09-04 06:12 | disposition home or self-care (01) ==
LOC: ER 02:56
DX: F15.929 Other stimulant use, unspecified with intoxication, unspecified (principal); F17.210 Nicotine dependence, cigarettes, uncomplicated
CPT/HCPCS: 99283; A9270

== ENCOUNTER 2023-09-04 20:04 | Emergency (ER) | payer OTHER ==
[~2023-09-04] VITALS: Ht 165.1 cm; Wt 113.4 kg
[2023-09-04 21:29] VITALS: BP 127/79
== END 2023-09-04 21:55 | disposition home or self-care (01) ==
LOC: ER 20:04
DX: F15.10 Other stimulant abuse, uncomplicated (principal); G47.00 Insomnia, unspecified; F41.9 Anxiety disorder, unspecified; F31.9 Bipolar disorder, unspecified; F17.210 Nicotine dependence, cigarettes, uncomplicated
CPT/HCPCS: 93005; 93010; 99284-25

== ENCOUNTER 2025-01-01 09:50 | Emergency (ER) | payer OTHER ==
[~2025-01-01] VITALS: Ht 165.1 cm; Wt 127.9 kg
[2025-01-01 09:59] VITALS: BP 146/95
[2025-01-01] MEDS ORDERED: Ketorolac Tromethamine 30mg Vial IM ONE (10:05)
[2025-01-01] MEDS ORDERED: IBUP600 PO (10:16)
== END 2025-01-01 10:19 | disposition home or self-care (01) ==
LOC: ER 09:50
DX: M54.50 Low back pain, unspecified (principal); F17.210 Nicotine dependence, cigarettes, uncomplicated
CPT/HCPCS: 96372; 99283-25; J1885

== ENCOUNTER → 2025-01-28 | Outpatient (CLI) | payer OTHER ==
[~2025-01-28] MED LIST changes: +IBUP600 PO
== END | disposition home or self-care (01) ==
LOC: LAB 14:36 → LAB SHORT 14:36
DX: S01.83XA Puncture wound without foreign body of other part of head, initial encounter (principal)
CPT/HCPCS: 87070; 87075; 87205